=== PATIENT | female | born 1990 | race Caucasian/White ===

== ENCOUNTER 2023-10-23 09:47 | Emergency (ER) | payer MEDICAID ==
[~2023-10-23] VITALS: Ht 157.5 cm; Wt 59.1 kg
[2023-10-23 09:57] VITALS: BP 118/83
[2023-10-23] MEDS ORDERED: CLEOCIN HCL300 MG PO (10:39)
[2023-10-23] MEDS ORDERED: NORCO 325 MG-51 TA1 PO (10:58)
== END 2023-10-23 11:25 | disposition home or self-care (01) ==
LOC: ED 09:47
DX: K04.7 Periapical abscess without sinus (principal); K02.9 Dental caries, unspecified

== ENCOUNTER 2024-02-10 20:50 | Emergency (ER) | payer MEDICAID ==
[~2024-02-10 20:50] MED LIST: CLEOCIN HCL300 MG PO; NORCO 325 MG-51 TA1 PO; oxyCODONE/Acetaminophen 5-325 MG TAB PO ONE
== END 2024-02-10 23:00 | disposition home or self-care (01) ==
LOC: ED 20:50
DX: S61.411A Laceration without foreign body of right hand, initial encounter (principal); S61.011A Laceration without foreign body of right thumb without damage to nail, initial encounter; S61.214A Laceration without foreign body of right ring finger without damage to nail, initial encounter; X58.XXXA Exposure to other specified factors, initial encounter

== ENCOUNTER 2024-06-30 20:12 | Emergency (ER) | payer MEDICAID ==
[~2024-06-30] VITALS: Ht 157.5 cm; Wt 59.1 kg
[~2024-06-30 20:12] MED LIST changes: -oxyCODONE/Acetaminophen 5-325 MG TAB PO ONE
[2024-06-30] MEDS ORDERED: NS 1,000 ML IV ONE (20:30)
[2024-06-30 20:33] LABS: BASO # 0.03 K/mm3 (0.02-0.10); HEMATOCRIT 39.6 % (37.0-47.0); HEMOGLOBIN 12.7 g/dL (12.5-16.0); LYMPH# 2.65 K/mm3 (1.50-4.00); MEAN CELL VOLUME 95 fl (78-100); MEAN CORPUSCULAR HEMOGLOBIN 30 pg (27-31); MEAN CORPUSCULAR HGB CONC 32 g/dL (33-37); MEAN PLATELET VOLUME 9.8 fl (7.4-10.4); NEU # 6.78 K/mm3 (1.40-6.50); PLATELET COUNT 242 K/mm3 (130-400); RED BLOOD COUNT 4.19 M/mm3 (4.10-5.30); RED CELL DISTRIBUTION WIDTH 12.7 % (11.5-14.5); WHITE BLOOD COUNT 10.5 K/mm3 (4.8-10.8)
[2024-06-30 20:40] LABS: ALBUMIN 3.9 g/dL (3.5-5.0)
[2024-06-30 20:42] LABS: CALCIUM 8.9 mg/dL (8.3-10.5)
[2024-06-30 20:43] LABS: TOTAL PROTEIN 6.6 g/dL (6.4-8.3)
[2024-06-30 20:45] LABS: TOTAL BILIRUBIN 0.4 mg/dL (0.2-1.2)
[2024-06-30 20:49] LABS: PH-URINE 6.5 (5.0 - 8.0); URINE APPEARANCE CLOUDY (CLEAR); URINE BILIRUBIN NEGATIVE (NEGATIVE); URINE BLOOD NEGATIVE (NEGATIVE); URINE COLOR YELLOW (YELLOW); URINE GLUCOSE NEGATIVE (NEGATIVE); URINE KETONE NEGATIVE (NEGATIVE); URINE LEUKOCYTE ESTERASE 1+ (NEGATIVE); URINE NITRATE NEGATIVE (NEGATIVE); URINE PROTEIN(semi-quant) NEGATIVE (NEGATIVE)
[2024-06-30 20:54] LABS: URINE WBC 16-30 /hpf (0-3)
[2024-06-30] MEDS ORDERED: Ondansetron 4 MG/2 ML VIAL IV ONE (21:00)
[2024-06-30] MEDS ORDERED: cefTRIAXone 1 G in Water For Injection,Sterile 10 ML IV ONE (21:45)
[2024-06-30] MEDS ORDERED: KETOROLAC10 MG PO (21:54)
[2024-06-30] MEDS ORDERED: CLEOCIN HCL300 MG PO (21:54)
[2024-06-30] MEDS ORDERED: Home Ketorolac 10 MG #4 TABS/PACK PO ONE (22:00)
[2024-06-30] MEDS ORDERED: Ketorolac 30 MG/ML VIAL IV ONE (22:00)
[2024-06-30 22:22] VITALS: BP 103/79
== END 2024-06-30 22:23 | disposition home or self-care (01) ==
LOC: ED 20:12
PROVIDERS: Family Medicine
DX: N20.0 Calculus of kidney (principal); N39.0 Urinary tract infection, site not specified; F17.200 Nicotine dependence, unspecified, uncomplicated
CPT/HCPCS: J0696; J1885; J2405; J7030